=== PATIENT | female | born 1980 | race Caucasian/White ===

== ENCOUNTER → 2022-12-07 | Outpatient (CLI) | payer OTHER ==
[~2022-12-07] MED LIST: FERR325T3 PO; GLUCAGON INJ 1MG VIAL As Ordered ONE; ISOVUE-370 76% 100ML VIAL As Ordered ONE; NEULUMEX 0.1% SUSPENSION 450ML BOTTLE (FORMERLY VOLUMEN) As Ordered ONE; NORG0.25 PO; VITMTA PO
== END ==
LOC: M RAD 13:56
PROVIDERS: ATTEND Physician Assistant Medical
DX: D50.9 Iron deficiency anemia, unspecified (principal); Z80.0 Family history of malignant neoplasm of digestive organs; R10.12 Left upper quadrant pain; K57.90 Diverticulosis of intestine, part unspecified, without perforation or abscess without bleeding; I70.0 Atherosclerosis of aorta; I25.10 Atherosclerotic heart disease of native coronary artery without angina pectoris
CPT/HCPCS: 74177; J1610; Q9967

== ENCOUNTER 2023-01-05 08:52 | Day surgery (SDC) | payer OTHER ==
[~2023-01-05] VITALS: Ht 167.6 cm; Wt 65.0 kg
[~2023-01-05 08:52] MED LIST changes: -GLUCAGON INJ 1MG VIAL As Ordered ONE; -ISOVUE-370 76% 100ML VIAL As Ordered ONE; +MOTR200T44 PO; -NEULUMEX 0.1% SUSPENSION 450ML BOTTLE (FORMERLY VOLUMEN) As Ordered ONE
[2023-01-05] MEDS ORDERED: fentaNYL 100 MCG/2 ML INJECTION As Ordered ONE (09:42)
[2023-01-05] MEDS ORDERED: propofoL 200 MG/20 ML VIAL As Ordered ONE (09:42)
[2023-01-05] MEDS ORDERED: LIDOCAINE 2% 100MG/5ML SDV (FOR ANES.) As Ordered ONE (09:42)
[2023-01-05] MEDS ORDERED: GLUCAGON INJ 1MG VIAL As Ordered ONE (09:46)
[2023-01-05] MEDS ORDERED: GLYCOPYRROLATE INJ 0.2 MG/ML 2 ML VIAL As Ordered ONE (09:51)
[2023-01-05 10:55] VITALS: TEMP 97.7
[2023-01-05 11:14] VITALS: BP 117/66; O2SAT 99
== END 2023-01-05 11:32 | disposition home or self-care (01) ==
LOC: M OPP 08:52
PROVIDERS: ATTEND Internal Medicine Gastroenterology
DX: D50.9 Iron deficiency anemia, unspecified (principal); K64.8 Other hemorrhoids; Q43.8 Other specified congenital malformations of intestine; Z80.0 Family history of malignant neoplasm of digestive organs; Z87.891 Personal history of nicotine dependence; Z79.1 Long term (current) use of non-steroidal anti-inflammatories (NSAID); Z79.3 Long term (current) use of hormonal contraceptives
CPT/HCPCS: 43239; 45378; 88305; J3010

== ENCOUNTER → 2023-01-30 | Outpatient (REF) | payer OTHER ==
[2023-01-30 10:42] LABS: ALBUMIN 3.5 G/DL (3.2-5.2); ALKALINE PHOSPHATASE 57 U/L (46-116); ALT/SGPT < 9 U/L (7.0-40); AST/SGOT < 8 U/L (<34); BILIRUBIN,DIRECT 0.1 MG/DL (<0.4); BILIRUBIN,TOTAL 0.5 MG/DL (0.3-1.2); IRON (FE) 80 UG/DL (50-170); PERCENT SATURATION 22.7 % (13.2-45.0); TOTAL IRON BINDING CAPACITY 352 UG/DL (250-425); TOTAL PROTEIN 6.6 G/DL (5.7-8.2)
[2023-01-30 10:55] LABS: HEPATITIS B SURFACE ANTIGEN NEGATIVE (NEGATIVE)
[2023-01-30 10:58] LABS: APPEARANCE, URINE CLEAR (CLEAR); BACTERIA, URINE AUTO 1+ (NEGATIVE); BILIRUBIN, URINE AUTO NEGATIVE (NEGATIVE); BLOOD, URINE BLOOD NEGATIVE (NEGATIVE); COLOR, URINE STRAW (YELLOW); GLUCOSE, URINE (UA) AUTO NEGATIVE (NEGATIVE); KETONE, URINE AUTO NEGATIVE (NEGATIVE); LEUKOCYTE ESTERASE, URINE AUTO TRACE (NEGATIVE); NITRITE, URINE AUTO NEGATIVE (NEGATIVE); PROTEIN, URINE AUTO NEGATIVE (NEGATIVE); RBC, URINE AUTO 1 /HPF (0-3); SQUAMOUS EPITHELIAL CELL UR AU 1 /HPF (0-6); UROBILINOGEN, URINE AUTO 0.2 mg/dL (0.0-2.0); WBC, URINE AUTO 0 /HPF (0-3)
[2023-01-30 11:16] LABS: HEPATITIS C VIRUS ABY INDEX 0.07 INDEX (<0.8)
[2023-01-30 11:17] LABS: HEPATITIS B CORE ANTIBODY IGM NEGATIVE (NEGATIVE)
== END ==
LOC: M LAB REF 09:03
PROVIDERS: ATTEND Physician Assistant Medical
DX: K76.1 Chronic passive congestion of liver (principal)

== ENCOUNTER → 2023-02-06 | Outpatient (CLI) | payer OTHER | LOC: M RAD 06:58 | PROVIDERS: ATTEND Physician Assistant Medical | DX: K76.1 Chronic passive congestion of liver (principal) ==

== ENCOUNTER → 2023-02-21 | Outpatient (CLI) | payer OTHER | LOC: M LAB 15:07 | PROVIDERS: ATTEND Internal Medicine Cardiovascular Disease | DX: I50.9 Heart failure, unspecified (principal) ==